=== PATIENT | male | born 1945 | race Two or more races ===

== ENCOUNTER 2018-05-27 11:56 | Emergency (ER) | payer MEDICARE, OTHER ==
[~2018-05-27] VITALS: Ht 162.6 cm; Wt 80.7 kg
[2018-05-27 13:28] LABS: Basophils # (auto) 0.1 uL; Basophils % (auto) 1.3 % (0.0-2.0); Eosinophils # (auto) 0.2 uL; Eosinophils % (auto) 2.4 % (0.0-7.0); Hematocrit 43.8 % (41.0-53.0); Hemoglobin 14.6 g/dL (13.5-17.5); Lymphocytes # (auto) 1.8 uL; Lymphocytes % (auto) 22.7 % (10.0-50.0); Mean Corpuscular Hemoglobin 30.1 pg (28.0-32.0); Mean Corpuscular Hgb Conc. 33.3 g/dL (32.0-36.0); Mean Corpuscular Volume 90.3 fL (80.0-100.0); Monocytes # (auto) 0.8 uL; Monocytes % (auto) 9.9 % (0.0-12.0); Neutrophils # (auto) 4.9 uL; Neutrophils % (auto) 63.7 % (37.0-80.0); Nucleated Red Blood Cells % 0.1 %; Platelet Count (auto) 263 10^3/uL (140-450); Red Blood Cells 4.85 10^6/uL (4.5-5.90); Red Cell Distribution Width 13.8 % (11.8-14.3); White Blood Cell 7.7 10^3/uL (4.4-10.8)
[2018-05-27 13:46] LABS: Albumin 3.7 g/dL (3.4-5.0); Amylase 47 U/L (25-115); Anion Gap 5 (5-15); Blood Urea Nitrogen 19 mg/dL (7-18); Calcium 10.1 mg/dL (8.5-10.1); Carbon Dioxide 28 mmol/L (21-32); Chloride 105 mmol/L (98-107); Glucose 104 mg/dL (74-106); Lipase 167 U/L (73-393); Magnesium 2.3 mg/dL (1.6-2.6); Potassium 4.4 mmol/L (3.5-5.1); Sodium 138 mmol/L (136-145)
[2018-05-27 13:48] LABS: Alanine Aminotransferase 28 U/L (16-61); Aspartate Aminotransferase 15 U/L (15-37); BUN/Creatinine Ratio 20.2; GFR African American 101 mL/min; GFR Non-African American 84 mL/min
[2018-05-27 13:53] LABS: Alkaline Phosphatase 99 U/L (45-117); Bilirubin, Total 0.9 mg/dL (0.2-1.0); Total Protein 7.1 g/dL (6.4-8.2)
[2018-05-27 14:44] LABS: Urine Bacteria NONE SEEN /hpf (None Seen); Urine Blood Negative /uL (Negative); Urine Specific Gravity 1.018 (1.001-1.035); Urine WBC 3 /hpf (0 - 3)
[2018-05-27 18:33] VITALS: BP 150/80
== END 2018-05-27 18:39 | disposition home or self-care (01) ==
LOC: ER 12:00
DX: M79.604 Pain in right leg (principal); I10 Essential (primary) hypertension; Z87.891 Personal history of nicotine dependence
CPT/HCPCS: 36415; 80053; 81001; 82150; 83690; 83735; 84484; 85025; 93005

== ENCOUNTER 2019-04-01 15:07 | Emergency (ER) | payer MEDICARE, OTHER ==
[~2019-04-01] VITALS: Ht 165.1 cm; Wt 83.9 kg
[2019-04-01] MEDS ORDERED: SODIUM CHLORIDE 0.9% 1,000 ML IV ONE (15:48)
[2019-04-01] MEDS ORDERED: ASPirin 81 mg TAB PO ONE (16:00)
[2019-04-01 16:30] LABS: Basophils # (auto) 0.1 uL; Basophils % (auto) 0.7 % (0.0-2.0); Eosinophils # (auto) 0.1 uL; Eosinophils % (auto) 1.2 % (0.0-7.0); Hematocrit 44.1 % (41.0-53.0); Hemoglobin 14.8 g/dL (13.5-17.5); Lymphocytes # (auto) 1.5 uL; Lymphocytes % (auto) 17.2 % (10.0-50.0); Mean Corpuscular Hemoglobin 30.3 pg (28.0-32.0); Mean Corpuscular Hgb Conc. 33.5 g/dL (32.0-36.0); Mean Corpuscular Volume 90.3 fL (80.0-100.0); Monocytes # (auto) 0.7 uL; Neutrophils # (auto) 6.2 uL; Neutrophils % (auto) 72.9 % (37.0-80.0); Nucleated Red Blood Cells % 0.1 %; Platelet Count (auto) 229 10^3/uL (140-450); Red Blood Cells 4.88 10^6/uL (4.5-5.90); Red Cell Distribution Width 13.6 % (11.8-14.3); White Blood Cell 8.5 10^3/uL (4.4-10.8)
[2019-04-01 16:41] LABS: Albumin 3.9 g/dL (3.4-5.0); Anion Gap 9 (5-15); Blood Urea Nitrogen 14 mg/dL (7-18); Calcium 9.9 mg/dL (8.5-10.1); Carbon Dioxide 23 mmol/L (21-32); Chloride 107 mmol/L (98-107); Glucose 101 mg/dL (74-106); Potassium 3.8 mmol/L (3.5-5.1); Sodium 139 mmol/L (136-145)
[2019-04-01 16:46] LABS: Alanine Aminotransferase 44 U/L (16-61); Alkaline Phosphatase 71 U/L (45-117); Aspartate Aminotransferase 27 U/L (15-37); BUN/Creatinine Ratio 16.3; Bilirubin, Total 0.7 mg/dL (0.2-1.0); GFR African American 112 mL/min; GFR Non-African American 93 mL/min; Total Protein 6.8 g/dL (6.4-8.2)
[2019-04-01 17:30] VITALS: BP 141/95
== END 2019-04-01 18:11 | disposition home or self-care (01) ==
LOC: ER 15:12
DX: R07.89 Other chest pain (principal); I10 Essential (primary) hypertension; Z86.73 Personal history of transient ischemic attack (TIA), and cerebral infarction without residual deficits
CPT/HCPCS: 36415; 71045; 80053; 83735; 84443; 84484; 85025; 93005

== ENCOUNTER 2021-10-24 12:53 | Emergency (ER) | payer MEDICARE, OTHER ==
[~2021-10-24] VITALS: Ht 162.6 cm; Wt 88.5 kg
[2021-10-24 17:56] VITALS: BP 134/80
== END 2021-10-24 20:52 | disposition home or self-care (01) ==
LOC: ER 12:53
DX: M79.672 Pain in left foot (principal); I10 Essential (primary) hypertension; Z87.891 Personal history of nicotine dependence; Z86.73 Personal history of transient ischemic attack (TIA), and cerebral infarction without residual deficits
CPT/HCPCS: 73590; 73610; 73700

== ENCOUNTER 2023-08-26 13:14 | Emergency (ER) | payer MEDICARE, OTHER ==
[~2023-08-26] VITALS: Ht 162.6 cm; Wt 86.0 kg
[~2023-08-26 13:14] MED LIST: IBU600T PO
[2023-08-26 17:18] VITALS: BP 164/98; PULSE 100; RESP 12; TEMP 97.8; O2SAT 96
[2023-08-26] MEDS ORDERED: HYDR-4902 PO (17:36)
== END 2023-08-26 17:42 | disposition home or self-care (01) ==
LOC: ER 13:14
DX: S72.115A Nondisplaced fracture of greater trochanter of left femur, initial encounter for closed fracture (principal); I10 Essential (primary) hypertension; Z87.891 Personal history of nicotine dependence; Z86.73 Personal history of transient ischemic attack (TIA), and cerebral infarction without residual deficits; W18.31XA Fall on same level due to stepping on an object, initial encounter; Y93.89 Activity, other specified; Y92.89 Other specified places as the place of occurrence of the external cause; Y99.8 Other external cause status
CPT/HCPCS: 72192; 73502

== ENCOUNTER 2024-02-05 12:11 | Inpatient (IN) | payer MEDICARE, OTHER ==
[2024-02-05] VITALS (8 sets, daily range): BP systolic 100–143; BP diastolic 74–101; PULSE 85–103; RESP 18–24; TEMP 97.2–97.7; O2SAT 94–100
[~2024-02-05] VITALS: Ht 162.6 cm; Wt 91.8 kg
[~2024-02-05 12:11] MED LIST changes: +HYDR-4902 PO
[2024-02-05] MEDS: FUROSEMIDE 40 MG/4 ML VIAL IV ONE (13:31)
[2024-02-05 13:32] LABS: Basophils # (auto) 0.1 10 ^3/uL (0-0.2); Basophils % (auto) 0.6 % (0.0-2.0); Eosinophils # (auto) 0.1 10 ^3/uL (0-0.8); Eosinophils % (auto) 0.8 % (0.0-7.0); Hematocrit 46.8 % (41.0-53.0); Hemoglobin 15.8 g/dL (13.5-17.5); Lymphocytes # (auto) 1.9 10 ^3/uL (0.4-5.4); Lymphocytes % (auto) 17.5 % (10.0-50.0); Mean Corpuscular Hemoglobin 30.2 pg (28.0-32.0); Mean Corpuscular Hgb Conc. 33.7 g/dL (32.0-36.0); Mean Corpuscular Volume 89.4 fL (80.0-100.0); Monocytes % (auto) 9.5 % (0.0-12.0); Neutrophils # (auto) 7.8 10 ^3/uL (1.6-8.6); Neutrophils % (auto) 71.6 % (37.0-80.0); Nucleated Red Blood Cells % 0.1 %; Platelet Count (auto) 205 10^3/uL (140-450); Red Blood Cells 5.24 10^6/uL (4.5-5.90); Red Cell Distribution Width 14.4 % (11.8-14.3)
[2024-02-05 13:48] LABS: Alanine Aminotransferase 72 U/L (7-40); Albumin 4.4 g/dL (3.2-4.8); Alkaline Phosphatase 112 U/L (46-116); Anion Gap 6 (5-15); Aspartate Aminotransferase 30 U/L (13-40); Blood Urea Nitrogen 22 mg/dL (9-23); Carbon Dioxide 23 mmol/L (20-31); Chloride 107 mmol/L (98-107); Glucose 121 mg/dL (74-106); Potassium 5.2 mmol/L (3.5-5.1); Sodium 136 mmol/L (136-145); Total Protein 6.9 g/dL (5.7-8.2)
[2024-02-05 14:30] LABS: COVID19 ANTIGEN SOFIA FIA NEGATIVE (NEGATIVE); Rapid Influenza A Negative (Negative); Rapid Influenza B Negative (Negative)
[2024-02-05 16:21] LABS: Urine Bacteria None Seen /hpf (None Seen)
[2024-02-05] MEDS ORDERED: ACETAMINOPHEN 325 MG TAB PO PRN (16:30)
[2024-02-05] MEDS ORDERED: HYDROcodone-ACET 5/325MG TAB PO PRN (16:30)
[2024-02-05] MEDS ORDERED: NITROGLYCERIN 0.4 MG SL TAB SL PRN (16:30)
[2024-02-05] MEDS ORDERED: MORPHINE SULFATE INJ 2 MG/ml SYRG IV PRN (16:30)
[2024-02-05] MEDS ORDERED: ONDANSETRON HCL 4 MG/2 ML VIAL IV PRN (16:30)
[2024-02-05] MEDS ORDERED: DOCUSATE SOD 100 MG CAP PO PRN (16:30)
[2024-02-05] MEDS ORDERED: LISI20TA56 PO (16:33)
[2024-02-05] MEDS: IOHEXOL 350 MG/ML 100ML IJ ONE ×2 (16:59→18:59)
[2024-02-05 17:06] LABS: Urine Blood Negative /uL (Negative); Urine Clarity Clear (Clear); Urine Color Light-Yellow (Yellow); Urine Hyaline Cast FEW /lpf (0 - 2); Urine Protein, UAD Negative (Negative); Urine Specific Gravity 1.009 (1.001-1.035); Urine Urobilinogen Normal (Negative); Urine WBC 1 /hpf (0 - 3); Urine pH 5.5 (5.0-9.0)
[2024-02-05] MEDS ORDERED: HEPARIN SODIUM (PORCINE) 5000 UNITS/ML 1ML VIAL IV ONE (17:30)
[2024-02-05] MEDS: HEPARIN SODIUM (PORCINE) 5000 UNITS/ML 1ML VIAL ONE ×3 (17:31→20:28)
[2024-02-05] MEDS: HEPARIN DRIP/D5W 100UNITS/ML 250 ML IV ONE (17:32)
[2024-02-05] MEDS: HEPARIN SODIUM (PORCINE) 5000 UNITS/ML 1ML VIAL IV ONE (17:45)
[2024-02-05] MEDS: HEPARIN DRIP/D5W 100UNITS/ML 250 ML IV SCH (17:53)
[2024-02-05] MEDS: HEPARIN IN NS 1000Units/500mL 1,500 ML ONE (18:59)
[2024-02-05] MEDS: LIDOCAINE 2%HCL (LOCAL ANESTH.) INJ 20ML MDV ONE (18:59)
[2024-02-05] MEDS: fentaNYL CITRATE 100 MCG/2 ML VL ONE (19:31)
[2024-02-05] MEDS: MIDAZOLAM HCL 2MG/2ML 2ml VIAL (1mg/ml) ONE (19:32)
[2024-02-05] MEDS: IODIXANOL 320MG/ML 100ML BTL IV ONE (20:28)
[2024-02-05] MEDS ORDERED: cloNIDine HCL 0.1 MG TAB PO PRN (21:45)
[2024-02-05] MEDS: SODIUM CHLOR 0.9% PF (SALINE LOCK) 10ML VIAL/SYR IV SCH (23:34)
[2024-02-05] MEDS: ENOXAPARIN SOD 80 MG/0.8ML SYRINGE SC SCH (23:37)
[2024-02-06] VITALS (11 sets, daily range): BP systolic 91–112; BP diastolic 56–76; PULSE 83–104; RESP 18–22; TEMP 97.3–97.7; O2SAT 90–98
[2024-02-06 01:34] LABS: Basophils # (auto) 0 10 ^3/uL (0-0.2); Basophils % (auto) 0.4 % (0.0-2.0); Eosinophils # (auto) 0.1 10 ^3/uL (0-0.8); Eosinophils % (auto) 0.6 % (0.0-7.0); Hematocrit 40.4 % (41.0-53.0); Hemoglobin 13.5 g/dL (13.5-17.5); Lymphocytes # (auto) 1.3 10 ^3/uL (0.4-5.4); Lymphocytes % (auto) 13.1 % (10.0-50.0); Mean Corpuscular Hgb Conc. 33.5 g/dL (32.0-36.0); Mean Corpuscular Volume 89.7 fL (80.0-100.0); Monocytes # (auto) 1.1 10 ^3/uL (0-1.3); Monocytes % (auto) 10.8 % (0.0-12.0); Neutrophils # (auto) 7.6 10 ^3/uL (1.6-8.6); Neutrophils % (auto) 75.1 % (37.0-80.0); Nucleated Red Blood Cells % 0.1 %; Platelet Count (auto) 177 10^3/uL (140-450); Red Blood Cells 4.51 10^6/uL (4.5-5.90); Red Cell Distribution Width 14.4 % (11.8-14.3)
[2024-02-06 01:43] LABS: Alanine Aminotransferase 58 U/L (7-40); Albumin 3.7 g/dL (3.2-4.8); Alkaline Phosphatase 94 U/L (46-116); Anion Gap 5 (5-15); Aspartate Aminotransferase 29 U/L (13-40); BUN/Creatinine Ratio 17.9 (10.0-20.0); Blood Urea Nitrogen 21 mg/dL (9-23); Calcium 10.5 mg/dL (8.7-10.4); Carbon Dioxide 24 mmol/L (20-31); Chloride 108 mmol/L (98-107); Glucose 114 mg/dL (74-106); Potassium 4.4 mmol/L (3.5-5.1); Sodium 137 mmol/L (136-145)
[2024-02-06 01:44] LABS: Bilirubin, Total 0.9 mg/dL (0.2-1.0); Total Protein 5.7 g/dL (5.7-8.2)
[2024-02-06 01:47] LABS: INR 1.14 (0.9-1.15); Partial Thromboplastin Time 63.2 SEC (24.5-34.5)
[2024-02-06 07:49] LABS: Basophils # (auto) 0.1 10 ^3/uL (0-0.2); Basophils % (auto) 0.8 % (0.0-2.0); Eosinophils # (auto) 0.2 10 ^3/uL (0-0.8); Eosinophils % (auto) 2.2 % (0.0-7.0); Hematocrit 40.2 % (41.0-53.0); Hemoglobin 13.7 g/dL (13.5-17.5); Lymphocytes # (auto) 1.9 10 ^3/uL (0.4-5.4); Lymphocytes % (auto) 20.9 % (10.0-50.0); Mean Corpuscular Hemoglobin 30.3 pg (28.0-32.0); Mean Corpuscular Hgb Conc. 34.2 g/dL (32.0-36.0); Mean Corpuscular Volume 88.6 fL (80.0-100.0); Monocytes % (auto) 10.5 % (0.0-12.0); Neutrophils % (auto) 65.6 % (37.0-80.0); Platelet Count (auto) 178 10^3/uL (140-450); Red Blood Cells 4.53 10^6/uL (4.5-5.90); Red Cell Distribution Width 14.2 % (11.8-14.3); White Blood Cell 9.1 10^3/uL (4.4-10.8)
[2024-02-06 08:02] LABS: Alanine Aminotransferase 58 U/L (7-40); Albumin 3.7 g/dL (3.2-4.8); Alkaline Phosphatase 95 U/L (46-116); Anion Gap 7 (5-15); Aspartate Aminotransferase 25 U/L (13-40); BUN/Creatinine Ratio 18.8 (10.0-20.0); Blood Urea Nitrogen 21 mg/dL (9-23); Calcium 10.6 mg/dL (8.7-10.4); Carbon Dioxide 24 mmol/L (20-31); Chloride 108 mmol/L (98-107); Glucose 101 mg/dL (74-106); Potassium 4.3 mmol/L (3.5-5.1); Sodium 139 mmol/L (136-145)
[2024-02-06 08:03] LABS: Total Protein 5.9 g/dL (5.7-8.2)
[2024-02-06] MEDS: LISINOPRIL 20 MG TAB PO SCH (10:50)
[2024-02-06] MEDS: FUROSEMIDE 20 MG/2 ML VIAL IV SCH (10:51)
[2024-02-06] MEDS: METOPROLOL SUCCINATE XL 50 MG TAB PO SCH (10:51)
[2024-02-06 14:07] LABS: Basophils # (auto) 0.1 10 ^3/uL (0-0.2); Basophils % (auto) 0.6 % (0.0-2.0); Eosinophils # (auto) 0.1 10 ^3/uL (0-0.8); Eosinophils % (auto) 1.5 % (0.0-7.0); Hematocrit 40.1 % (41.0-53.0); Hemoglobin 13.8 g/dL (13.5-17.5); Lymphocytes # (auto) 1.5 10 ^3/uL (0.4-5.4); Lymphocytes % (auto) 15.3 % (10.0-50.0); Mean Corpuscular Hemoglobin 30.6 pg (28.0-32.0); Mean Corpuscular Hgb Conc. 34.5 g/dL (32.0-36.0); Mean Corpuscular Volume 88.5 fL (80.0-100.0); Monocytes # (auto) 0.6 10 ^3/uL (0-1.3); Monocytes % (auto) 6.6 % (0.0-12.0); Neutrophils # (auto) 7.5 10 ^3/uL (1.6-8.6); Nucleated Red Blood Cells % 0.1 %; Platelet Count (auto) 185 10^3/uL (140-450); Red Blood Cells 4.53 10^6/uL (4.5-5.90); Red Cell Distribution Width 14.3 % (11.8-14.3); White Blood Cell 9.8 10^3/uL (4.4-10.8)
[2024-02-06] MEDS: RIVAROXABAN 20 MG TAB PO SCH (17:23)
[2024-02-07] VITALS (12 sets, daily range): BP systolic 89–116; BP diastolic 62–80; PULSE 81–95; RESP 16–22; TEMP 97.3–98.3; O2SAT 91–100
[2024-02-07] MEDS: LACTATED RINGER'S 1,000 ML IV ONE (02:28)
[2024-02-07] MEDS: LACTATED RINGER'S 1,000 ML IV SCH (04:02)
[2024-02-07 07:51] LABS: Chloride 107 mmol/L (98-107); Potassium 4.3 mmol/L (3.5-5.1); Sodium 137 mmol/L (136-145)
[2024-02-07 07:52] LABS: Anion Gap 7 (5-15); Basophils # (auto) 0.1 10 ^3/uL (0-0.2); Basophils % (auto) 0.9 % (0.0-2.0); Carbon Dioxide 23 mmol/L (20-31); Eosinophils # (auto) 0.3 10 ^3/uL (0-0.8); Eosinophils % (auto) 3.5 % (0.0-7.0); Hematocrit 35.3 % (41.0-53.0); Hemoglobin 12.3 g/dL (13.5-17.5); Lymphocytes # (auto) 1.9 10 ^3/uL (0.4-5.4); Lymphocytes % (auto) 22.5 % (10.0-50.0); Mean Corpuscular Hemoglobin 30.8 pg (28.0-32.0); Mean Corpuscular Hgb Conc. 34.8 g/dL (32.0-36.0); Mean Corpuscular Volume 88.4 fL (80.0-100.0); Monocytes # (auto) 0.9 10 ^3/uL (0-1.3); Monocytes % (auto) 11.1 % (0.0-12.0); Neutrophils # (auto) 5.2 10 ^3/uL (1.6-8.6); Platelet Count (auto) 172 10^3/uL (140-450); Red Blood Cells 3.99 10^6/uL (4.5-5.90); Red Cell Distribution Width 14.3 % (11.8-14.3); White Blood Cell 8.4 10^3/uL (4.4-10.8)
[2024-02-07 07:53] LABS: Calcium 10.4 mg/dL (8.7-10.4)
[2024-02-07 07:57] LABS: BUN/Creatinine Ratio 22.3 (10.0-20.0); Blood Urea Nitrogen 23 mg/dL (9-23); Glucose 115 mg/dL (74-106)
[2024-02-07 08:06] LABS: PSA Free 0.88 ng/mL; Prostate Specific Antigen 11.1 ng/mL (0.0-4.0)
[2024-02-07 10:48] LABS: CRP High Sensitivity 1.55 mg/dL (<1.0)
[2024-02-07] MEDS: SODIUM CHLORIDE 0.9% 1,000 ML IV ONE (13:06)
[2024-02-08] VITALS (7 sets, daily range): BP systolic 99–128; BP diastolic 71–79; PULSE 72–91; RESP 18–24; TEMP 36.6; O2SAT 93–97
[2024-02-08 05:20] LABS: Basophils # (auto) 0.1 10 ^3/uL (0-0.2); Eosinophils # (auto) 0.4 10 ^3/uL (0-0.8); Eosinophils % (auto) 5.2 % (0.0-7.0); Hematocrit 34.1 % (41.0-53.0); Hemoglobin 11.7 g/dL (13.5-17.5); Lymphocytes # (auto) 1.7 10 ^3/uL (0.4-5.4); Lymphocytes % (auto) 22.4 % (10.0-50.0); Mean Corpuscular Hgb Conc. 34.3 g/dL (32.0-36.0); Mean Corpuscular Volume 87.6 fL (80.0-100.0); Monocytes # (auto) 0.8 10 ^3/uL (0-1.3); Neutrophils # (auto) 4.7 10 ^3/uL (1.6-8.6); Neutrophils % (auto) 61.4 % (37.0-80.0); Platelet Count (auto) 171 10^3/uL (140-450); Red Blood Cells 3.89 10^6/uL (4.5-5.90); Red Cell Distribution Width 14.3 % (11.8-14.3); White Blood Cell 7.7 10^3/uL (4.4-10.8)
[2024-02-08 05:33] LABS: Chloride 106 mmol/L (98-107); Potassium 4.2 mmol/L (3.5-5.1); Sodium 136 mmol/L (136-145)
[2024-02-08 05:34] LABS: Anion Gap 7 (5-15); Calcium 10.4 mg/dL (8.7-10.4); Carbon Dioxide 23 mmol/L (20-31)
[2024-02-08 05:39] LABS: Blood Urea Nitrogen 23 mg/dL (9-23); Glucose 110 mg/dL (74-106)
[2024-02-08 09:29] LABS: Base Excess -2.8 mmol/L (-2.0-3.0)
[2024-02-08] MEDS ORDERED: RIVA20TA PO (14:32)
== END 2024-02-08 18:00 | disposition home or self-care (01) | DRG 163 ==
LOC: ER 12:11 → EDBD 12:11 → TELE 16:33 → TELE-CENTR 23:15
PROVIDERS: ADMIT Internal Medicine; ATTEND Internal Medicine
PROC: 02CQ3ZZ Extirpation of Matter from Right Pulmonary Artery, Percutaneous Approach (ICD-10-PCS; principal; 2024-02-05)
PROC: B31TYZZ Fluoroscopy of Left Pulmonary Artery using Other Contrast (ICD-10-PCS; 2024-02-05)
PROC: B31SYZZ Fluoroscopy of Right Pulmonary Artery using Other Contrast (ICD-10-PCS; 2024-02-05)
DX: I26.99 Other pulmonary embolism without acute cor pulmonale (principal); J96.01 Acute respiratory failure with hypoxia; E87.5 Hyperkalemia; I11.0 Hypertensive heart disease with heart failure; I50.9 Heart failure, unspecified; E66.9 Obesity, unspecified; K76.0 Fatty (change of) liver, not elsewhere classified; K57.30 Diverticulosis of large intestine without perforation or abscess without bleeding; I27.20 Pulmonary hypertension, unspecified; E11.9 Type 2 diabetes mellitus without complications; Z86.73 Personal history of transient ischemic attack (TIA), and cerebral infarction without residual deficits; Z87.891 Personal history of nicotine dependence; Z83.3 Family history of diabetes mellitus; Z82.49 Family history of ischemic heart disease and other diseases of the circulatory system; Z68.33 Body mass index [BMI] 33.0-33.9, adult; Z79.4 Long term (current) use of insulin
CPT/HCPCS: 36415; 36600; 37184; 71045; 71275; 74176; 76881; 80048; 80053; 80061; 81001; 82306; 82378; 82607; 82805; 83605; 83880; 84154; 84443; 84484; 85025; 85379; 85610; 85730; 86141; 86301; 87040; 87426; 87804; 93005; 93306; 93568; 93970; 99152; 99291; G0378; J2250; Q9967